=== PATIENT | male | born 1960 | race Caucasian/White ===

== ENCOUNTER 2019-05-21 10:45 | Inpatient (IN) | payer SELFPAY ==
[~2019-05-21] VITALS: Ht 160 cm; Wt 82.0 kg
[2019-05-21] VITALS (237 sets, daily range): BP systolic 110–141; BP diastolic 70–102; PULSE 60–88; TEMP 98.2–98.4; O2SAT 91–100
--- NOTE | 2019-05-21 11:30 | NUR ---
PATIENT ARRIVES FROM [facility] VIA EMS. NITRO GTT INFUSING. NS RUNNING AT 100 CC/HR. PATIENT ORIENTED TO ROOM. CALL LIGHT PLACED WITHIN REACH. ASSESSMENT COMPLETED. DR. CLEMENTE NOTIFIED OF ARRIVAL.
[2019-05-21] MEDS ORDERED: ZESTORETIC 25 M1 TAB PO (11:49)
[2019-05-21] MEDS ORDERED: GLUCOPHAGE1000 MG PO (11:49)
[2019-05-21] MEDS ORDERED: OMEGA-3 1000 MG1 CAP PO (11:50)
[2019-05-21] MEDS ORDERED: CARDURA 2MG2 MG PO (11:50)
[2019-05-21] MEDS ORDERED: CLARITIN 1010 MG/TAB PO (11:51)
[2019-05-21] MEDS ORDERED: ASPIRIN 81M81 MG/TA2 PO (11:51)
[2019-05-21] MEDS ORDERED: ZANTAC 150150 MG PO (11:51)
[2019-05-21 13:11] LABS: CHOLESTEROL RISK RATIO 4.1; MAGNESIUM 1.2 mg/dL (1.6-2.3)
[2019-05-21 13:23] LABS: PARTIAL THROMBOPLASTIN TIME 32.1 SECONDS (26.0-37.0)
[2019-05-21 13:32] LABS: TROPONIN-I 0.379 ng/mL (0.000-0.035)
--- NOTE | 2019-05-21 14:30 | NUR ---
DR. BUENO CONTACTED REGARDING FINDING OUT THE PLAN OF CARE FOR THIS PATIENT. HE STATES HE WILL BE OVER TO COMPLETE THE CONSULT SOON.
--- NOTE | 2019-05-21 16:41 | NUR ---
ALL MEDICATIONS GIVEN VORB WITH MD. SEE MERGE FOR ALL MEDICATION ADMIN TIMES. SEE MERGE FOR ALL RASS ASSESSMENTS DURING AND POST PROCEDURE. POSITIVE BARBEAU'S TEST IN THE RIGHT WRIST, PULSE +1. PER MD VORB, STOPPED NITRO AND HEPARIN GTT.
--- NOTE | 2019-05-21 17:45 | NUR ---
Patient transported back to ICU Room #6 on the [facility]. Patient hooked back up to monitoring equipment, VS stable. Bedside report given to MARIANELA Birch. Patient denies any pain. TR remains in place with 12 ml of air in the band. Cap refill <3. Pedal pulses +2 bilaterally. Bed in locked and lowest position, call light within reach.
--- NOTE | 2019-05-21 17:55 | NUR ---
PATIENT RETURNS FROM CREDIT MANAGER AT THIS TIME. HE INSISTS ON STANDING UP AT SIDE OF BED TO VOID. CREDIT MANAGER RN STAYS WITH PATIENT WHILE HE VOIDS.
--- NOTE | 2019-05-21 19:15 | NUR ---
BEDSIDE REPORT GIVEN TO MARIANELA PATEL. RIGHT RADIAL SITE EVALUATED TOGETHER.
--- NOTE | 2019-05-21 19:22 | NUR ---
received report from rafael light.
[2019-05-22] VITALS (438 sets, daily range): BP systolic 101–141; BP diastolic 60–88; PULSE 60–76; TEMP 98.2–98.4; O2SAT 69–99
--- NOTE | 2019-05-22 00:43 | NUR ---
RADIAL CUFF IS DEFLATED AN OFF AT THIS TIME.
--- NOTE | 2019-05-22 07:05 | NUR ---
Bedside report received from MARIANELA Solis.
--- NOTE | 2019-05-22 07:19 | NUR ---
GAVE REPORT TO MARIANELA MCDANIEL.
--- NOTE | 2019-05-22 07:50 | NUR ---
Assessment complete, patient denies needs at this time, grumpy with all the lines and IV's discussed need for them to be in place. Right radial site soft without hematoma, band-aid covering site.
--- NOTE | 2019-05-22 08:35 | NUR ---
SW met with the patient to discuss a discharge plan. The patient is from [place] but has been staying in [place] at [facility] since August 2018 for work. The pt does not use DME and reports independence with ADLs. The pt's PCP is Dr. Nasima Diehl in [place] and locally receives his medications at [facility] in [place]. The pt reports he will be needing a med voucher and is self-pay. SW contacted Jo in finance. She reports they will visit the patient today, 05/22. The pt does not have advanced directives in the EMR. Pt's emergency point of contact is his , Chante Flores . SW will continue to follow to discharge recommendations.
--- NOTE | 2019-05-22 09:14 | NUR ---
Initial visit; Patient thanked Elevated Work Platform Operator for looking in on him and offering spiritual care. Patient receptive to being kept in Elevated Work Platform Operator's prayers.
--- NOTE | 2019-05-22 09:30 | NUR ---
Jacquelin,application security specialist in speaking with patient.
[2019-05-22] MEDS ORDERED: LIPITOR 80MG80 MG PO (10:33)
[2019-05-22] MEDS ORDERED: NITROSTAT0.4 MG/TAB SL (10:34)
[2019-05-22] MEDS ORDERED: PLAVIX 75MG TAB75 MG PO (10:36)
[2019-05-22] MEDS ORDERED: LOPRESSOR 225 MG/TAB PO (10:37)
--- NOTE | 2019-05-22 11:41 | NUR ---
Dr. Walker's office will call patient to make follow-up appointment.
--- NOTE | 2019-05-22 11:51 | NUR ---
Truong,PhD in to educate patient on new medications.
--- NOTE | 2019-05-22 12:12 | NUR ---
Patient sitting at bedside, waiting on ECHO.
--- NOTE | 2019-05-22 13:03 | NUR ---
truck technician in room for echo.
--- NOTE | 2019-05-22 13:07 | NUR ---
The pt is to discharge today, 05/22. SW provided a medication voucher to the pt. There are no additional needs at this time.
--- NOTE | 2019-05-22 13:54 | NUR ---
Discharge instructions given, both INT's removed (tips intact) questions invited and answered. Awaiting on Dr. Walker to clear ECHO results.
--- NOTE | 2019-05-22 14:05 | NUR ---
Patient escorted outside to wait for ride, all belongings sent with patient.
== END 2019-05-22 14:06 | disposition home or self-care (01) | DRG 246 ==
LOC: IMCU 10:45 → ICU 11:31
PROVIDERS: ADMIT Internal Medicine
PROC: 027034Z Dilation of Coronary Artery, One Artery with Drug-eluting Intraluminal Device, Percutaneous Approach (ICD-10-PCS; principal; 2019-05-21)
PROC: 4A023N7 Measurement of Cardiac Sampling and Pressure, Left Heart, Percutaneous Approach (ICD-10-PCS; 2019-05-21)
PROC: B2111ZZ Fluoroscopy of Multiple Coronary Arteries using Low Osmolar Contrast (ICD-10-PCS; 2019-05-21)
PROC: B2151ZZ Fluoroscopy of Left Heart using Low Osmolar Contrast (ICD-10-PCS; 2019-05-21)
DX: I25.119 Atherosclerotic heart disease of native coronary artery with unspecified angina pectoris (principal); I21.4 Non-ST elevation (NSTEMI) myocardial infarction; Z91.030 Bee allergy status; I10 Essential (primary) hypertension; E78.5 Hyperlipidemia, unspecified; E11.9 Type 2 diabetes mellitus without complications; Z79.84 Long term (current) use of oral hypoglycemic drugs; E66.9 Obesity, unspecified; Z68.32 Body mass index [BMI] 32.0-32.9, adult; K21.9 Gastro-esophageal reflux disease without esophagitis; F10.10 Alcohol abuse, uncomplicated; Z87.891 Personal history of nicotine dependence; F41.9 Anxiety disorder, unspecified
CPT/HCPCS: 99223-AI; 99239; C1725; C1769; C1874; C1887; C9600; J1644; J1815; J2250; J3010; J7030; Q9967

== ENCOUNTER 2019-06-04 08:30 | Day surgery (SDC) | payer SELFPAY ==
[2019-06-04] VITALS (16 sets, daily range): BP systolic 122–147; BP diastolic 58–99; PULSE 50–73; TEMP 98.1
[~2019-06-04] VITALS: Ht 160.1 cm; Wt 79.5 kg
[~2019-06-04 08:30] MED LIST: ASPIRIN 81M81 MG/TA2 PO; CARDURA 2MG2 MG PO; CLARITIN 1010 MG/TAB PO; GLUCOPHAGE1000 MG PO; LIPITOR 80MG80 MG PO; LOPRESSOR 225 MG/TAB PO; NITROSTAT0.4 MG/TAB SL; OMEGA-3 1000 MG1 CAP PO; PLAVIX 75MG TAB75 MG PO; ZANTAC 150150 MG PO; ZESTORETIC 25 M1 TAB PO
[2019-06-04 10:08] LABS: HEMOGLOBIN 13.2 g/dl (13.5-18.0); MEAN CELL VOLUME 90 fl (80.0-100.0); MEAN CORPUSCULAR HEMOGLOBIN 32 pg (27.0-31.0); MEAN CORPUSCULAR HGB CONC 36 g/dl (33.0-37.0); PLATELET COUNT 169 K/mm3 (130-400); RED BLOOD COUNT 4.12 M/mm3 (4.20-5.60); REDCELL DISTRIBUTION WIDTH-CV 12.4 % (11.5-14.5)
[2019-06-04 10:12] LABS: HEMATOCRIT 36.9 % (42.0-52.0)
[2019-06-04] MEDS ORDERED: LIPITOR 80MG80 MG PO (10:12)
[2019-06-04] MEDS ORDERED: PLAVIX 75MG TAB75 MG PO (10:13)
[2019-06-04] MEDS ORDERED: ZYRTEC 10MG10 MG PO (10:18)
[2019-06-04 10:19] LABS: CALCIUM 10.4 mg/dL (8.4-10.2); CREATININE, serum 0.6 (0.66-1.25); POTASSIUM 4.5 mmol/L (3.4-5.0)
[2019-06-04] MEDS ORDERED: LOPRESSOR 225 MG/TAB PO (10:19)
[2019-06-04 10:20] LABS: INR 1.2 (0.8-3.0); PROTHROMBIN TIME 14.1 SECONDS (9.7-12.8)
[2019-06-04] MEDS ORDERED: AMARYL4 MG PO (10:22)
--- NOTE | 2019-06-04 11:04 | NUR ---
PLEASE SEE MERGE FOR ALL MEDICATION ADMINISTRATION TIMES, SEDATION ASSESSMENT DATA INTR/POST PROCEDURE
--- NOTE | 2019-06-04 13:05 | NUR ---
Pt returned to EU 11 per bed s/p heart cath. Pt on 15 L O2 per non-rebreather due to complications during heart cath. Pt oriented/restless in bed.
--- NOTE | 2019-06-04 14:25 | NUR ---
Pt decreased to O2 6L per NC. O2 sat remains 100%.
--- NOTE | 2019-06-04 14:30 | NUR ---
Pt decreased to 4L per NC. Pt ramirez well, sats remain at 100%.
--- NOTE | 2019-06-04 14:35 | NUR ---
Pt decreased to O2 at 2L per NC. Pt to stay on 2L NC until tomorrow.
--- NOTE | 2019-06-04 16:05 | NUR ---
R radial band removed. Cath site remains soft, C/D/I, covered with bandaid and gauze and wrapped with coban. Pt ramirez well.
--- NOTE | 2019-06-04 16:30 | NUR ---
Phone report to Yara Simmons RN.
--- NOTE | 2019-06-04 16:45 | NUR ---
Pt transfered to [facility] per w/c. Charge nurse notified of pt's arrival.
--- NOTE | 2019-06-04 18:11 | NUR ---
PATIENT SLEEPING IN CHAIR IN ROOM, RADIAL BAND AND ARMBOARD IN PLACE, NO AIR IN RADIAL BAND AT THIS TIME, NO NOTED BLEEDING OR HEMATOMA TO AREA, VITALS MONITORED Q1H POST OP
--- NOTE | 2019-06-04 19:00 | NUR ---
THIS NURSE PRECEPTING CECILE BEAR. THIS NURSE VERIFIED AND WENT THROUGH ALL CHATING WITH CECILE THIS SHIFT
--- NOTE | 2019-06-04 19:27 | NUR ---
REPORT GIVEN TO BREANNA BEAR.
--- NOTE | 2019-06-04 21:13 | NUR ---
Resting in recliner. Asssessment complete. Lungs clear. Heart murmur heard. Pusles strong throughout. No edema noted. Right radial site free of complications. denies pain. Left forearm INT without complications. Patient reports taking home medications this evening, states nurse earlier in the day said it would be okay. Patient took metformin 1000mg, metoprolol 12.5mg, lipitor 80mg, doxazosin 2mg, and ranitidine. Instructed patient dangers of taking home medications. Asked patient to allow staff to remove medication from room. Patient refused states he will not take any more home medications. Dr. Walker notified. Instruct patient to hydrate well, do not take metformin tomorrow. No other orders. Patient education provided. All questions answered.
--- NOTE | 2019-06-04 22:30 | NUR ---
Patient request "something to help sleep." Obtained order for Ambien 5mg from Dr. Walker. Denies other needs. Call light in reach.
[2019-06-05 00:44] VITALS: BP 119/50; PULSE 57; TEMP 97.8
[2019-06-05 05:07] VITALS: BP 144/64; PULSE 58; TEMP 97.9
--- NOTE | 2019-06-05 05:35 | NUR ---
Patient had uneventful night. Radial site free of complications. Denies needs this AM. Call light in reach.
--- NOTE | 2019-06-05 07:00 | NUR ---
Report given to MARIANELA Santiago
[2019-06-05 07:17] VITALS: BP 134/75; PULSE 65; TEMP 97.4
--- NOTE | 2019-06-05 08:00 | NUR ---
PT VOICING WILLINESS TO DISCHARGE THIS AM. INFORMED PT THAT PROVIDER WASNT IN AT THIS TIME, TYPICALLY COMES IN ABOUT 0900. NO ISSUES OR CONSERNS VOICED AT THIS TIME.
--- NOTE | 2019-06-05 09:40 | NUR ---
PT DISCHARGE EDUCATION PROVIDED. NO QUESTIONS VOICED. PAPERWORK SIGNED. IV AND TELE REMOVED.
== END 2019-06-05 10:00 | disposition home or self-care (01) ==
LOC: COL.CAR 08:30 → MEDICAL 16:56 → COL.CAR 06-05 10:00
PROVIDERS: Internal Medicine Cardiovascular Disease
DX: R07.9 Chest pain, unspecified (principal); I10 Essential (primary) hypertension; E78.5 Hyperlipidemia, unspecified; E11.9 Type 2 diabetes mellitus without complications; E66.9 Obesity, unspecified; K21.9 Gastro-esophageal reflux disease without esophagitis; F10.10 Alcohol abuse, uncomplicated; Z87.891 Personal history of nicotine dependence; Z79.84 Long term (current) use of oral hypoglycemic drugs; Z79.82 Long term (current) use of aspirin; Z82.49 Family history of ischemic heart disease and other diseases of the circulatory system; Z91.030 Bee allergy status
CPT/HCPCS: OP; J1644; J2250; J3010; Q9967

== ENCOUNTER → 2019-08-27 | Outpatient (CLI) | payer OTHER ==
[~2019-08-27] MED LIST changes: +AMARYL4 MG PO; +ZYRTEC 10MG10 MG PO
== END ==
LOC: COL.CAR 10:42
DX: I25.10 Atherosclerotic heart disease of native coronary artery without angina pectoris (principal); I35.0 Nonrheumatic aortic (valve) stenosis